=== PATIENT | female | born 1960 | race Caucasian/White ===

== ENCOUNTER → 2017-03-28 | Outpatient (CLI) | payer OTHER ==
--- NOTE | 2017-03-28 14:06 | DIAGNOSTIC IMAGING REPORT ---
CT SCAN OF THE PARANASAL SINUSES CLINICAL HISTORY: Sinusitis. COMPARISON STUDY: No priors. TECHNIQUE: High-resolution CT scan of the paranasal sinuses is performed. Images are reviewed in the axial, sagittal, and coronal planes. IV contrast was not administered for this examination. A dose lowering technique was utilized adhering to the principles of ALARA. CT DOSE: 592.24 mGy.cm FINDINGS: Maxillary antra: There is trace dependent mucosal thickening within the maxillary antra. Bony septations are seen within the inferior maxillary antra. Anterior ethmoid sinuses: Clear. Posterior ethmoid sinuses: Clear. Sphenoid sinuses: Clear. Frontal sinuses: Clear. Ostiomeatal complexes: Patent bilaterally. Frontoethmoidal and sphenoethmoidal recesses: Patent bilaterally. Carotid arteries: The carotid arteries are covered noting a septal attachment on the right. Ethmoid roofs: There is asymmetric elevation of the right ethmoid roof as compared to the left. Nasal turbinates: Normal in appearance. Nasal septum: There is minimal left deviation of the bony nasal septum with a small spur. Optic nerves: Covered. Orbits: The bony orbits are intact. Orbital contents are normal in appearance. Calvarium: The imaged calvarium is normal in appearance Mastoid air cells: There are trace mastoid effusions. Brain parenchyma: Partially visualized brain parenchyma is within normal limits. Soft tissues: A punctate calcified sialolith is noted in the right parotid gland. IMPRESSION: No significant paranasal sinus disease. See above. Electronically signed by: Chris Diane M.D. 03/28/2017 2:05 PM Dictated Date/Time: 03/28/2017 2:02 PM
== END | disposition home or self-care (01) ==
LOC: C.CTS 13:37
PROVIDERS: ATTEND Internal Medicine Pulmonary Disease
DX: J32.9 Chronic sinusitis, unspecified (principal)